=== PATIENT | male | born 1950 | race Caucasian/White ===

== ENCOUNTER 2020-12-01 05:37 | Outpatient (CLI) | payer MEDICARE, OTHER ==
[~2020-12-01] VITALS: Ht 182.9 cm; Wt 122.5 kg
[2020-12-01] MEDS ORDERED: VITA-189 PO (14:20)
[2020-12-01] MEDS ORDERED: ZINC50TA51 PO (14:20)
[2020-12-01] MEDS ORDERED: HYDR25TA4 PO (14:20)
[2020-12-01] MEDS ORDERED: METF750T PO (14:20)
[2020-12-01] MEDS ORDERED: SIMV40TA25 PO (14:20)
[2020-12-01] MEDS ORDERED: VERA240T14 PO (14:20)
[2020-12-01] MEDS ORDERED: POLY17PO6 PO (14:20)
[2020-12-01] MEDS ORDERED: OLME40TA18 PO (14:20)
[2020-12-01] MEDS ORDERED: MV-M1TAB20 PO (14:20)
[2020-12-01] MEDS ORDERED: EXEN2AUT SQ (14:20)
[2020-12-01] MEDS ORDERED: OMEP20TA33 PO (14:20)
== END 2020-12-01 14:41 | disposition home or self-care (01) ==
LOC: PREOP 05:37
PROVIDERS: ATTEND Radiology Radiation Oncology
DX: Z01.818 Encounter for other preprocedural examination (principal)

== ENCOUNTER 2020-12-08 10:27 | Day surgery (SDC) | payer MEDICARE, OTHER ==
[~2020-12-08] VITALS: Ht 182.9 cm; Wt 122.5 kg
[~2020-12-08 10:27] MED LIST: EXEN2AUT SQ; HYDR25TA4 PO; METF750T PO; MV-M1TAB20 PO; OLME40TA18 PO; OMEP20TA33 PO; POLY17PO6 PO; SIMV40TA25 PO; VERA240T14 PO; VITA-189 PO; ZINC50TA51 PO
[2020-12-08] MEDS ORDERED: LACTATED RINGERS 1,000 ML IV PRN (11:00)
[2020-12-08 11:02] VITALS: BP 164/102
--- NOTE | 2020-12-08 11:14 | Progress Note-Pre Operative ---
Pre-Operative Progress Note H&P Reviewed The H&P was reviewed, patient examined and no changes noted. Date Seen by Provider: December 08, 2020 Time Seen by Provider: 11:14 Date H&P Reviewed: December 08, 2020 Time H&P Reviewed: 11:14 Pre-Operative Diagnosis: Prostate cancer cT2a, PSA 4.8, [place] 6 MATILDA MERCADO MD December 08, 2020 11:14
--- NOTE | 2020-12-08 11:16 | Discharge Inst-Simple/Standard ---
Discharge Inst-Standard Reconcile Patient Problems Problems Reviewed?: Yes Discharge Medications New, Converted or Re-Newed RX: Other (patient has antibiotic at home) Patient Instructions/Follow Up Plan of Care/Instructions/FU: Treatment planning ct scan at [facility] cancer center 12/21/20 at 10:00 a.m. arrive at 9:30 a.m. to drink oral contrast Activity as Tolerated: Yes Discharge Diet: No Restrictions MATILDA MERCADO MD December 08, 2020 11:16
[2020-12-08] MEDS ORDERED: fentaNYL INJ 100 MCG/2 ML AMP ONE (13:16)
[2020-12-08] MEDS ORDERED: LIDOCAINE PF 2% 5 ML (XYLOCAINE) VIAL ONE (13:36)
[2020-12-08] MEDS ORDERED: PHENYLEPHRINE 100 MCG/ML 10 ML (ANESTHESIA) SYR ONE (13:36)
[2020-12-08] MEDS ORDERED: SEVOFLURANE (ULTANE) 15 ML INHAL SOLN ONE (13:36)
[2020-12-08] MEDS ORDERED: proPOfol 200 MG/20 ML (DIPRIVAN) VIAL IV ONE (13:36)
[2020-12-08] MEDS ORDERED: ONDANSETRON 4 MG/2 ML (SDV) Z0FRAN ONE (13:36)
[2020-12-08 13:52] VITALS: BP 111/72
[2020-12-08 14:00] VITALS: BP 90/64
[2020-12-08] MEDS ORDERED: ONDANSETRON 4 MG/2 ML (SDV) Z0FRAN IVP PRN (14:00)
[2020-12-08] MEDS ORDERED: morphine INJ 10 MG/ML 1ML (SYR OR VIAL) IVP ONE (14:00)
--- NOTE | 2020-12-08 14:00 | Progress Note-Post Operative ---
Post-Operative Progess Note Surgeon (s)/Equipment Lead (s) Surgeon Asaf FAIRBANKS MD Equipment Lead: MATILDA MERCADO MD Pre-Operative Diagnosis Prostate cancer cT2a, PSA 4.8, [place] 6 Post-Operative Diagnosis Same as pre op Procedure & Operative Findings Date of Procedure 12/08/20 Procedure Performed/Findings 1) Placement of fiducial markers 2) Injection of biodegradable hyrdrogel prostate-rectal spacer utilizing the [employer] system Anesthesia Type General Estimated Blood Loss Estimated blood loss (mL): None Specimens/Packing Specimens Removed None Packing: None MATILDA MERCADO MD December 08, 2020 14:00
[2020-12-08 14:10] VITALS: BP 119/81
[2020-12-08 14:25] VITALS: BP_SYST 110; BP_SYST 122; BP_DIAS 76; BP_DIAS 78
--- NOTE | 2020-12-08 14:27 | Anesthesia-General Post-Op ---
General Patient Condition Mental Status/LOC: Same as Preop Cardiovascular: Satisfactory Nausea/Vomiting: Absent Respiratory: Satisfactory Pain: Controlled Complications: Absent Post Op Complications Complications None Follow Up Care/Instructions Patient Instructions None needed. Anesthesia/Patient Condition Patient Condition Patient is doing well, no complaints, stable vital signs, no apparent adverse anesthesia problems. YAYO VANG DO December 08, 2020 14:27
[2020-12-08 14:55] VITALS: BP 155/92
== END 2020-12-08 15:05 | disposition home or self-care (01) ==
LOC: SDC 10:27
PROVIDERS: ATTEND Radiology Radiation Oncology
DX: C61 Malignant neoplasm of prostate (principal); E11.9 Type 2 diabetes mellitus without complications; E78.00 Pure hypercholesterolemia, unspecified; I10 Essential (primary) hypertension; M19.90 Unspecified osteoarthritis, unspecified site; K21.9 Gastro-esophageal reflux disease without esophagitis; N45.1 Epididymitis; E66.9 Obesity, unspecified; F17.210 Nicotine dependence, cigarettes, uncomplicated; Z79.84 Long term (current) use of oral hypoglycemic drugs; Z79.899 Other long term (current) drug therapy; Z85.828 Personal history of other malignant neoplasm of skin; Z68.37 Body mass index [BMI] 37.0-37.9, adult; Z90.89 Acquired absence of other organs; Z80.8 Family history of malignant neoplasm of other organs or systems; Z80.49 Family history of malignant neoplasm of other genital organs
CPT/HCPCS: 55874; 55876; 82947; 87081; C1889

== ENCOUNTER → 2021-01-03 | Outpatient (RCR) | payer MEDICARE, OTHER ==
[~2021-01-03] MED LIST changes: +morphine INJ 4 MG/ML 1 ML (CANCER CTR) ONE
== END | disposition home or self-care (01) ==
LOC: EDBD → ONC 09-09 13:18
PROVIDERS: ATTEND Radiology Radiation Oncology
DX: C61 Malignant neoplasm of prostate (principal); E11.9 Type 2 diabetes mellitus without complications; E78.00 Pure hypercholesterolemia, unspecified; I10 Essential (primary) hypertension
CPT/HCPCS: 77300; 77301; 77334; 77338; 77385; 99204

== ENCOUNTER 2021-03-24 09:47 | Outpatient (RCR) | payer MEDICARE, OTHER ==
[~2021-03-24 09:47] MED LIST changes: -morphine INJ 4 MG/ML 1 ML (CANCER CTR) ONE
== END 2021-04-04 | disposition home or self-care (01) ==
LOC: ONC 09:47
PROVIDERS: ATTEND Radiology Radiation Oncology
DX: C61 Malignant neoplasm of prostate (principal); E11.9 Type 2 diabetes mellitus without complications; E78.00 Pure hypercholesterolemia, unspecified; I10 Essential (primary) hypertension
CPT/HCPCS: 77385 ×3; G0463; 77336; 84153; 99213

== ENCOUNTER 2021-09-19 08:50 | Outpatient (RCR) | payer MEDICARE, OTHER ==
[~2021-09-19 08:50] MED LIST changes: -VERA240T14 PO; +VERA240T90 PO
== END 2021-09-26 | disposition home or self-care (01) ==
LOC: ONC 08:50
PROVIDERS: ATTEND Radiology Radiation Oncology
DX: C61 Malignant neoplasm of prostate (principal); E11.9 Type 2 diabetes mellitus without complications; E78.00 Pure hypercholesterolemia, unspecified; I10 Essential (primary) hypertension; Z79.84 Long term (current) use of oral hypoglycemic drugs; Z79.899 Other long term (current) drug therapy
CPT/HCPCS: 84153